=== PATIENT | female | born 1980 | race Caucasian/White ===

== ENCOUNTER 2017-02-11 09:01 | Day surgery (SDC) | payer OTHER ==
[~2017-02-11] VITALS: Ht 218.4 cm; Wt 68.0 kg
[~2017-02-11 09:01] MED LIST: LOESTRIN 1/21 TABLET PO; MOTRIN IB200 MG PO; TRAZODONE HCL50 MG PO
[2017-02-11 09:34] VITALS: BP 122/52
[2017-02-11] MEDS ORDERED: IBUPROFEN800 MG PO (13:00)
[2017-02-11] MEDS ORDERED: ENDOCET 5-3251 EACH PO (13:00)
[2017-02-11 15:03] VITALS: BP 127/72
[2017-02-11 16:18] VITALS: BP 111/68
[2017-02-11 17:03] VITALS: BP 126/71
[2017-02-11 17:32] VITALS: BP 122/60
== END 2017-02-11 17:45 | disposition home or self-care (01) ==
LOC: SDC 09:01
DX: N92.0 Excessive and frequent menstruation with regular cycle (principal); N99.4 Postprocedural pelvic peritoneal adhesions; G89.29 Other chronic pain; R10.2 Pelvic and perineal pain; N94.6 Dysmenorrhea, unspecified; D25.1 Intramural leiomyoma of uterus; N80.0 Endometriosis of uterus; N72 Inflammatory disease of cervix uteri; Z98.51 Tubal ligation status; Z87.891 Personal history of nicotine dependence
CPT/HCPCS: 88307; J0330; J0690; J1100; J1170; J1200; J1885; J2250; J2405; J2710; J3010

== ENCOUNTER 2018-04-08 12:36 | Emergency (ER) | payer BC ==
[~2018-04-08] VITALS: Ht 157.5 cm; Wt 74.9 kg
[~2018-04-08 12:36] MED LIST changes: +ENDOCET 5-3251 EACH PO; +IBUPROFEN800 MG PO
[2018-04-08] MEDS ORDERED: ERYTHROMYC1 APPLICAT RIGHT EYE (14:25)
[2018-04-08 14:33] VITALS: BP 128/94
== END 2018-04-08 14:34 | disposition home or self-care (01) ==
LOC: EME 12:36
DX: S05.02XA Injury of conjunctiva and corneal abrasion without foreign body, left eye, initial encounter (principal); X58.XXXA Exposure to other specified factors, initial encounter; Z87.891 Personal history of nicotine dependence
CPT/HCPCS: 99281; 99284